=== PATIENT | male | born 1965 | race Caucasian/White ===

== ENCOUNTER 2023-05-28 08:26 | Day surgery (SDC) | payer OTHER ==
[~2023-05-28] VITALS: Ht 180.3 cm; Wt 102.5 kg
[2023-05-28] MEDS ORDERED: diphenhydrAMINE 50 MG/ML VIAL ONE (09:07)
[2023-05-28] MEDS ORDERED: fentaNYL citrate 0.05 MG/ML VIAL ONE (09:07)
[2023-05-28] MEDS ORDERED: MIDAZOLAM 2 MG/2 ML VIAL ONE (09:08)
[2023-05-28] MEDS ORDERED: LIDOCAINE 1% 500 MG/50 ML VIAL ONE (09:08)
[2023-05-28] MEDS ORDERED: LIDOCAINE 2% 100 MG/5 ML UJET TP ONE (09:09)
[2023-05-28] MEDS ORDERED: MIDAZOLAM 2 MG/2 ML VIAL IVP ONE (10:00)
[2023-05-28] MEDS ORDERED: diphenhydrAMINE 50 MG/ML VIAL IVP ONE (10:00)
[2023-05-28] MEDS ORDERED: fentaNYL citrate 0.05 MG/ML VIAL IVP ONE (10:00)
== END 2023-05-28 11:25 | disposition home or self-care (01) ==
LOC: MOR 08:26 → MMU 08:26 → MOR 11:25
PROVIDERS: ATTEND Internal Medicine Gastroenterology
DX: Z12.11 Encounter for screening for malignant neoplasm of colon (principal); D12.2 Benign neoplasm of ascending colon
CPT/HCPCS: 45380; 45385; 88305; J1200; J2250; J3010; J2001